=== PATIENT | female | born 2005 | race African-American/Black ===

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

== ENCOUNTER 2025-02-12 15:03 | Emergency (ER) | payer OTHER ==
[~2025-02-12] VITALS: Ht 172.7 cm; Wt 77.1 kg
[2025-02-12 15:26] VITALS: O2SAT 100
[2025-02-12] MEDS ORDERED: P50 MT (19:02)
[2025-02-12 19:08] VITALS: BP 110/64; PULSE 88; RESP 18; TEMP 36.7; O2SAT 99
== END 2025-02-12 19:12 | disposition home or self-care (01) ==
LOC: ER 15:03
DX: R21 Rash and other nonspecific skin eruption (principal); Z79.899 Other long term (current) drug therapy
CPT/HCPCS: 99283

== ENCOUNTER 2025-03-10 13:39 | Emergency (ER) | payer OTHER, MEDICAID ==
[~2025-03-10] VITALS: Ht 172.7 cm; Wt 77.0 kg
[~2025-03-10 13:39] MED LIST: P50 MT
[2025-03-10 13:46] VITALS: TEMP 37; O2SAT 94; O2SAT 98
[2025-03-10 14:31] LABS: BASOPHILS % 0.6 % (0.0-2.0); EOSINOPHILS % 2.0 % (0.0-5.0); HEMATOCRIT. 34.1 % (36.0-48.0); HEMOGLOBIN. 11.1 g/dL (12.0-16.0); LYMPHOCYTES % 15.8 % (20.0-50.0); MEAN PLATELET VOLUME 7.7 fl (7.4-10.4); MONOCYTES % 10.1 % (2.0-8.0); NEUTROPHILS % 71.5 % (40.0-76.0); PLATELET 336 x1000/uL (130-400); RED BLOOD CELL COUNT 4.01 mill/uL (4.2-5.4); RED CELL DISTRIBUTION WIDTH 14.9 % (11.6-14.6)
[2025-03-10 14:45] LABS: CREATININE 0.7 mg/dL (0.6-1.0); UREA NITROGEN BLOOD 6 mg/dL (9-23)
[2025-03-10] MEDS: IBUPROFEN 600MG TABLET PO ONE (15:19)
[2025-03-10] MEDS: BACITRACIN ZINC OINT UDPKT TOP SCH ×2 (16:01→18:11)
[2025-03-10 16:20] VITALS: BP 126/72; PULSE 93; RESP 20
[2025-03-10] MEDS: MORPHINE SULFATE 4 MG/ML INJ (FOR IV/IM USE) IM ONE (16:20)
[2025-03-10] MEDS: ONDANSETRON 4MG ODT PO ONE (16:20)
[2025-03-10] MEDS ORDERED: BACITRACIN ZINC OINT UDPKT TOP ONE (16:30)
[2025-03-10] MEDS: BACITRACIN 14GM TUBE TOP SCH (18:45)
[2025-03-10] MEDS ORDERED: BO1 TP (19:03)
== END 2025-03-10 19:21 | disposition home or self-care (01) ==
LOC: ER 13:39
DX: S00.81XA Abrasion of other part of head, initial encounter (principal); S70.211A Abrasion, right hip, initial encounter; S80.812A Abrasion, left lower leg, initial encounter; S80.811A Abrasion, right lower leg, initial encounter; Z79.899 Other long term (current) drug therapy; V89.2XXA Person injured in unspecified motor-vehicle accident, traffic, initial encounter; Y93.89 Activity, other specified; Y92.89 Other specified places as the place of occurrence of the external cause; Y99.8 Other external cause status
CPT/HCPCS: 80048; 85025; 36415; 96372; 99284; Q0162; J2270; Z7610 ×3; A6449; 99283

== ENCOUNTER 2025-03-13 15:28 | Emergency (ER) | payer MEDICAID, OTHER ==
[~2025-03-13] VITALS: Ht 172.7 cm; Wt 80.0 kg
[~2025-03-13 15:28] MED LIST changes: +BO1 TP
[2025-03-13 15:29] VITALS: O2SAT 100
[2025-03-13] MEDS ORDERED: BO1 TP (17:50)
[2025-03-13] MEDS: MORPHINE SULFATE 4 MG/ML INJ (FOR IV/IM USE) IM ONE (18:05)
[2025-03-13] MEDS: ONDANSETRON 4MG ODT PO ONE (18:05)
[2025-03-13] MEDS: BACITRACIN ZINC OINT UDPKT TOP ONE (18:33)
[2025-03-13] MEDS ORDERED: ACET-2708 MT (19:38)
[2025-03-13 19:39] VITALS: BP 108/63; PULSE 72; RESP 16; TEMP 37.1; O2SAT 100
== END 2025-03-13 19:45 | disposition home or self-care (01) ==
LOC: ER 15:28
DX: S80.812A Abrasion, left lower leg, initial encounter (principal); S81.811A Laceration without foreign body, right lower leg, initial encounter; V98.8XXA Other specified transport accidents, initial encounter; Y93.89 Activity, other specified; Y92.89 Other specified places as the place of occurrence of the external cause; Y99.8 Other external cause status
CPT/HCPCS: 96372; 99283; Q0162; J2270; Z7610 ×2; A6449

== ENCOUNTER 2025-06-27 20:29 | Emergency (ER) | payer MEDICAID ==
[~2025-06-27] VITALS: Ht 170.2 cm; Wt 83.5 kg
[~2025-06-27 20:29] MED LIST changes: +ACET-2708 MT
[2025-06-27 20:32] VITALS: BP 112/69; PULSE 75; RESP 14; TEMP 36.7; O2SAT 100; O2SAT 99
[2025-06-27 21:59] LABS: CLARITY URINE CLOUDY (CLEAR); COLOR URINE YELLOW (YELLOW); GLUCOSE URINE NEGATIVE (NEGATIVE); KETONES URINE NEGATIVE (NEGATIVE); LEUKOCYTE ESTERASE URINE 3+ (NEGATIVE); NITRITE URINE NEGATIVE (NEGATIVE); OCCULT BLOOD URINE 1+ (NEGATIVE); PH URINE 5.5 (4.5-8.0); PROTEIN URINE TRACE (NEGATIVE); SPECIFIC GRAVITY URINE 1.025 (1.005-1.030); UROBILINOGEN URINE 0.2 E.U./dL (0.2-1.0)
[2025-06-27 22:07] LABS: BACTERIA URINE 3+
[2025-06-27 22:08] LABS: SQUAMOUS EPITHELIAL CELL URINE 1+ /lpf (RARE/1+); WBC URINE 25-50 /hpf (0-2)
[2025-06-27 22:10] LABS: YEAST URINE RARE
[2025-06-27] MEDS ORDERED: NITR100C MT (22:25)
[2025-06-27] MEDS ORDERED: FLUC150T46 MT (22:25)
== END 2025-06-27 22:32 | disposition home or self-care (01) ==
LOC: ER 20:29
DX: N39.0 Urinary tract infection, site not specified (principal); B37.9 Candidiasis, unspecified
CPT/HCPCS: 81003; 81025; 87077; 87210; 99283